=== PATIENT | male | born 1955 | race Caucasian/White ===

== ENCOUNTER 2017-11-13 13:34 | Observation (INO) | END 2017-11-14 18:24 | disposition home or self-care (01) ==

== ENCOUNTER 2018-08-19 18:25 | Emergency (ER) | payer BC ==
[~2018-08-19] VITALS: Ht 167.6 cm; Wt 86.4 kg
[~2018-08-19 18:25] MED LIST: LORA1TAB PO; LOSA1TAB25 PO; WARF10TA PO
[2018-08-19 18:27] VITALS: Ht 167.6 cm; Wt 86.4 kg
[2018-08-19 21:32] VITALS: BP 120/68; PULSE 82; RESP 16
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
== END 2018-08-19 21:44 | disposition home or self-care (01) ==
LOC: E/R 18:25
DX: R07.9 Chest pain, unspecified (principal); M25.512 Pain in left shoulder; I10 Essential (primary) hypertension
CPT/HCPCS: 71045; 80053; 84484; 85025; 85610; Z7502